=== PATIENT | male | born 1940 | race Caucasian/White ===

== ENCOUNTER 2017-03-18 09:48 | Day surgery (SDC) | payer MEDICARE, OTHER | END 2017-03-18 11:53 | disposition home or self-care (01) | LOC: GIL 09:48 | DX: K27.9 Peptic ulcer, site unspecified, unspecified as acute or chronic, without hemorrhage or perforation (principal); Z53.9 Procedure and treatment not carried out, unspecified reason ==

== ENCOUNTER 2017-03-22 09:21 | Day surgery (SDC) | payer MEDICARE, OTHER ==
[2017-03-22] MEDS ORDERED: LIDOCAINE 2% (SDV) 5 ML INJ (10:32)
[2017-03-22] MEDS ORDERED: PROPOFOL 80 ML (10:32)
== END 2017-03-22 15:19 | disposition home or self-care (01) ==
LOC: GIL 09:21
DX: B96.81 Helicobacter pylori [H. pylori] as the cause of diseases classified elsewhere (principal); K29.70 Gastritis, unspecified, without bleeding; K57.90 Diverticulosis of intestine, part unspecified, without perforation or abscess without bleeding; K64.8 Other hemorrhoids; I10 Essential (primary) hypertension; E78.5 Hyperlipidemia, unspecified; D50.9 Iron deficiency anemia, unspecified
CPT/HCPCS: 43239; 87081